=== PATIENT | female | born 1945 | race Caucasian/White ===

== ENCOUNTER 2018-11-07 05:56 | Inpatient (IN) | payer OTHER, MEDICARE ==
[2018-11-02 13:55] VITALS: BMI 32.4
[2018-11-07] MEDS ORDERED: THROMBIN (BOVINE) 5,000 UNIT VIAL TP ONE ×2 (07:06→10:48)
[2018-11-07] MEDS ORDERED: KETOROLAC TROMETHAMINE 30 MG/1 ML VIAL ONE (08:00)
[2018-11-07] MEDS ORDERED: ceFAZolin SODIUM 1 GM VIAL ONE (08:00)
[2018-11-07] MEDS ORDERED: DEXAMETHASONE SOD PHOSPHATE 4 MG/1 ML VIAL ONE (08:00)
[2018-11-07] MEDS ORDERED: ONDANSETRON 4 MG/2 ML VIAL ONE (08:00)
[2018-11-07] MEDS ORDERED: SUCCINYLCHOLINE CHLORIDE 200 MG/10 ML VIAL ONE (08:01)
[2018-11-07] MEDS ORDERED: PROPOFOL 20 ML ONE (08:01)
[2018-11-07] MEDS ORDERED: BUPIVACAINE HCL/PF 0.5% (5MG/ML) 10 ML VIAL ONE (08:05)
[2018-11-07] MEDS ORDERED: BUPIVACAINE HCL/PF (5 MG/ML) 30 ML VIAL IJ ONE (08:10)
[2018-11-07] MEDS ORDERED: MIDAZOLAM HCL 2 MG/2 ML SINGLE DOSE VIAL ONE ×2 (08:10→10:24)
[2018-11-07] MEDS ORDERED: BUPIVACAINE LIPOSOME/PF (EXPAREL) 266 MG/20 ML VIAL ONE (08:10)
--- NOTE | 2018-11-07 08:10 | HP ---
History & Physical Update - History History: No Change - Physical Physical: No Change - Assessment Assessment: No Change - Plan Plan: No Change (H&P from PCP and clearance from cardiology from 10/20/2018. She has palpable peripheral pulses b/l.)
[2018-11-07] MEDS ORDERED: ePHEDrine SULFATE 50 MG/1 ML AMPULE ONE (09:01)
[2018-11-07] MEDS ORDERED: ONDANSETRON 4 MG/2 ML VIAL IVPUSH PRN ×2 (10:12→11:00)
[2018-11-07] MEDS ORDERED: oxyCODONE HCL 5 MG TABLET PO PRN ×3 (10:13→11:00)
[2018-11-07] MEDS ORDERED: LACTATED RINGERS SOLUTION 1,000 ML IV SCH (10:15)
[2018-11-07] MEDS ORDERED: ACETAMINOPHEN 325 MG TABLET (FP) PO SCH ×2 (10:15→16:00)
[2018-11-07] MEDS ORDERED: GUM MASTIC/STORAX/MSAL/ALCOHOL 1 DRP DROPSBTL MC ONE (10:44)
[2018-11-07] MEDS ORDERED: GELATIN SPONGE,ABSORBABLE 1 GM PACKET TP ONE (10:49)
[2018-11-07] MEDS ORDERED: TRIAMCINOLONE ACET 0.1% CREAM 15 GM TUBE TP PRN (11:04)
[2018-11-07] MEDS ORDERED: ACETAMINOPHEN 1000 MG/100 ML VIAL (NON FORMULARY) IVPB ONE ×2 (11:08→11:25)
[2018-11-07] MEDS ORDERED: FUROSEMIDE 40 MG TABLET (FP) PO SCH (11:15)
--- NOTE | 2018-11-07 11:15 | OP ---
Operative Note - Note: Operative Date: 11/07/18 Pre-Operative Diagnosis: lumbar spondylolisthesis Operation: posterior lumbar decompression, instrumentation, fusion, transformainal interbody fusion of L4-L5 with neuromonitoring and allograft Surgeon: Michael Markham [place] Weighmaster: Shirin Cason Anesthesiologist/[employer] DEMONSTRATION AGENT: Geri Lagos Anesthesia: Spinal Estimated Blood Loss (mls): 20 Fluid Volume Replaced (mls): 900 Operative Report Dictated: Yes
--- NOTE | 2018-11-07 11:18 | SURG ---
Surgery Chief Mechanical Officer Note Chief Mechanical Officer: Shirin Cason PA-C Date of Service: 11/07/18 Diagnosis: lumbar spondylolisthesis Procedure: posterior lubmar decompression, instrumentation, fusion/ transforaminal interbody fusion of L4-L5 with allograft and neuromonitoring I was present for the entirety of the operative procedure. For further detail, please refer to operative report. Visit type - Case Type Case Type: Scheduled - Emergency Emergency Visit: No - New patient This patient is new to me today: Yes Date on this admission: 11/07/18 - Critical Care Critical Care patient: No
[2018-11-07] MEDS ORDERED: SODIUM CHLORIDE 0.45% 1,000 ML IV SCH (11:30)
[2018-11-07] MEDS ORDERED: diazePAM 2 MG TABLET ONE (12:15)
[2018-11-07] MEDS ORDERED: diazePAM 2 MG TABLET PO ONE (12:29)
[2018-11-07] MEDS: diazePAM 2 MG TABLET PO SCH ×2 (14:02→23:34)
[2018-11-07] MEDS: oxyCODONE HCL 5 MG TABLET PO PRN ×3 (14:14→22:27)
[2018-11-07] MEDS: INSULIN SLIDING SCALE (NOVOLOG) 1 VIAL SQ SCH ×2 (16:35→22:32)
[2018-11-07] MEDS: ACETAMINOPHEN 325 MG TABLET (FP) PO SCH ×2 (17:23→23:33)
[2018-11-07] MEDS: CEFAZOLIN 1 GM/D5W 1 GM/50 ML BAG IVPB SCH (17:33)
--- NOTE | 2018-11-07 21:41 | OP ---
DATE OF OPERATION: 11/07/2018 PREOPERATIVE DIAGNOSES: 1. Spondylolisthesis, L4-5. 2. Spinal stenosis, L4-5. POSTOPERATIVE DIAGNOSES: 1. Spondylolisthesis, L4-5. 2. Spinal stenosis, L4-5. PROCEDURE PERFORMED: 1. Transforaminal lumbar interbody fusion, L4-5. 2. Placement of instrumentation. 3. Placement of interbody cage. SURGEON: Michael Markham MD PROOFREADER: LEA Joe ESTIMATED BLOOD LOSS: 50 mL INTRAVENOUS FLUIDS: Per Anesthesia. ANESTHESIA: Spinal/TLIP block. COMPLICATIONS: None. DISPOSITION: Patient was brought to the PACU in stable condition. INDICATION FOR SURGERY: The patient is a 73-year-old female who has been suffering from pain from her back down her legs. X-rays and MRI were completed which noted that she had spinal stenosis at L4-5 secondary to a spondylolisthesis. She had gone through an exhaustive course of treatment for this which included medications, physical therapy, as well as injections. Unfortunately, her pain continued to persist despite all this. At this point, risks, benefits, and alternatives were discussed, and the patient consented to surgery. DESCRIPTION OF PROCEDURE: Patient was brought to the operating room by the anesthesia staff. After appropriate patient identification was performed, spinal anesthesia was given. TLIP block was also given. The patient was able to position herself prone onto the OR table with all areas of bony prominences well padded at this time. The C-arm was brought in. The L4 and L5 pedicles were marked off. Her back was prepped and draped in a sterile manner. At this point, timeout was completed. Incisions were made bilaterally over the L4 and L5 pedicles. Dissection was carried down to the fascia. Fascia was split open at this time. Under C-arm guidance, trocars were advanced into both the L4 and L5 pedicles. Through the trocar, wire was inserted. Tap was performed. Screws were inserted. On the right-hand side, retractor blades were set up to expose the L4-5 facet joint. The facet joint was removed. The disk was entered using a series of pituitaries, Kerrisons, and curettes. A diskectomy was completed. The endplates were decorticated at this time. Bone graft was placed in. A cage filled with bone graft was placed in. Tulip heads were placed over the screws. A daina was measured and placed in. Caps and compression were applied. On the left-hand side, a daina was measured and placed in. Caps and compression were applied. All x-ray instrumentation was removed at this time. The fascia was closed with a number 1 Vicryl suture. Subcutaneous tissue was closed with 2-0 Vicryl suture. S kin was closed with 3-0 Monocryl suture. Dermabond was applied. Steri-Strips were applied. A sterile dressing was applied. Patient was placed supine on the OR bed and brought to the PACU in stable condition. Jasiel [id number]
[2018-11-08] MEDS: CEFAZOLIN 1 GM/D5W 1 GM/50 ML BAG IVPB SCH ×2 (02:34→09:40)
[2018-11-08] MEDS: oxyCODONE HCL 5 MG TABLET PO PRN ×2 (02:35→06:19)
[2018-11-08] MEDS: ACETAMINOPHEN 325 MG TABLET (FP) PO SCH (06:18)
[2018-11-08] MEDS: INSULIN SLIDING SCALE (NOVOLOG) 1 VIAL SQ SCH (06:29)
[2018-11-08 06:41] VITALS: BP 127/66; PULSE 60; TEMP 98
--- NOTE | 2018-11-08 06:56 | DS ---
Physical Exam: SUBJECTIVE: Patient seen and examined. Sitting in chair at bedside. C/o mild incisional tenderness. Adequate pain control with medications ordered. States she has been OOB and ambulating the floors unassisted. Voiding spontaneously. Toleratiing PO diet. States the right thigh pain which was present prior too surgery is still present but seems to dissipate after she starts to ambulate. Denies n/v/f/c, numbness/weakness/tingling. OBJECTIVE: Vital Signs Temperature 98.0 F 11/08/18 06:00 Pulse Rate 60 11/08/18 06:00 Respiratory Rate 18 11/08/18 06:00 Blood Pressure 127/66 11/08/18 06:00 O2 Sat by Pulse Oximetry (%) 93 L 11/08/18 06:00 PHYSICAL EXAM GENERAL: The patient is awake, alert, and fully oriented, in no acute distress. LE: soft. NT. 2+ pulses, warm, well-perfused, no edema. NEURO: CN II - XII grossly intact. Normal speech, gait not observed. PSYCH: Normal mood, normal affect. BACK: dressing c/d/i. No palpable hematoma. No signs of infection LABS POC Glucometer 131 UNITS (80-120) 11/08/18 06:20 HOSPITAL COURSE: Date of Admission:11/07/18 Date of Discharge: 11/08/18 The patient was admitted to the Med-Surg Unit after an elective repair of their L4/5 spondylolithesis. Now, s/p posterior lumbar decompression, instrumentation , fusion, transformainal interbody fusion of L4-L5 with neuromonitoring and allograft. The day of surgery, the patient ambulated the hallways with assistance. Narcotic and non-narcotic pain management control was achieved with an oral and IV approach. POD #1, patient continued to ambulate unassisted. An xray was obtained and confirmed hardware placement at L4/5, no fractures or dislocations. Joyce-operative IV ABX were administered. DVT prophylaxis was achieved with SCDs and early ambulation. The patient ambulated with Physical Therapy and no services were recommended upon discharge. Narcotic scripts and or muscle relaxants were checked with [place] [employer] prior to escribe. The discharge instructions and an oral pain management plan were reviewed with the patient. All questions answered. Above plan discussed with Dr. Markham and agreed. Minutes to complete discharge: 35 <Richard Plata P - Last Filed: 11/08/18 07:50> Physical Exam: SUBJECTIVE: Patient seen and examined OBJECTIVE: Vital Signs Temperature 98.0 F 11/08/18 06:00 Pulse Rate 60 11/08/18 06:00 Respiratory Rate 16 11/08/18 08:42 Blood Pressure 127/66 11/08/18 06:00 O2 Sat by Pulse Oximetry (%) 97 11/08/18 08:42 PHYSICAL EXAM GENERAL: The patient is awake, alert, and fully oriented, in no acute distress. HEAD: Normal with no signs of trauma. EYES: PERRL, extraocular movements intact, sclera anicteric, conjunctiva clear. ENT: Ears normal, nares patent, oropharynx clear without exudates, moist mucous membranes. NECK: Trachea midline, full range of motion, supple. LUNGS: Breath sounds equal, clear to auscultation bilaterally, no wheezes, no crackles, no accessory muscle use. HEART: Regular rate and rhythm, S1, S2 without murmur, rub or gallop. ABDOMEN: Soft, nontender, nondistended, normoactive bowel sounds, no guarding, no rebound, no hepatosplenomegaly, no masses. EXTREMITIES: 2+ pulses, warm, well-perfused, no edema. NEUROLOGICAL: Cranial nerves II through XII grossly intact. Normal speech, gait not observed. PSYCH: Normal mood, normal affect. SKIN: Warm, dry, normal turgor, no rashes or lesions noted. LABS CBC,CMP WBC 12.0 K/mm3 (4.0-10.8) H 11/08/18 07:15 RBC 2.70 M/mm3 (3.60-5.2) L 11/08/18 07:15 Hgb 8.8 GM/dl (10.7-15.3) L 11/08/18 07:15 Hct 26.5 % (32.4-45.2) L 11/08/18 07:15 MCV 98.1 fl (80-96) H 11/08/18 07:15 MCH 32.4 pg (25.7-33.7) 11/08/18 07:15 MCHC 33.0 g/dl (32.0-36.0) 11/08/18 07:15 RDW 14.1 % (11.6-15.6) 11/08/18 07:15 Plt Count 147 K/MM3 (134-434) 11/08/18 07:15 MPV 10.5 fl (7.5-11.1) 11/08/18 07:15 Sodium 133 mmol/L (136-145) L 11/08/18 07:15 Potassium 5.1 mmol/L (3.5-5.1) 11/08/18 07:15 Chloride 105 mmol/L (98-107) 11/08/18 07:15 Carbon Dioxide 20 mmol/L (21-32) L 11/08/18 07:15 Anion Gap 8 MMOL/L (8-16) 11/08/18 07:15 BUN 47 mg/dl (7-18) H 11/08/18 07:15 Creatinine 1.9 mg/dl (0.55-1.3) H 11/08/18 07:15 Creat Clearance w eGFR 25.84 (>60) 11/08/18 07:15 POC Glucometer 131 UNITS (80-120) 11/08/18 06:20 Random Glucose 134 mg/dl (74-106) H 11/08/18 07:15 Calcium 9.0 mg/dl (8.5-10) 11/08/18 07:15 HOSPITAL COURSE: Date of Admission:11/07/18 Date of Discharge: 11/11/18 Patient seen and examined Agree with above D/C Planning <Michael Markham - Last Filed: 11/11/18 13:59> Visit type - Case Type Case Type: Scheduled - New patient This patient is new to me today: Yes Date on this admission: 11/08/18 <Richard Plata - Last Filed: 11/08/18 07:50>
[2018-11-08] MEDS ORDERED: LEVOTHYROXINE NA 75 MCG TABLET (FP) PO SCH (07:00)
[2018-11-08 08:06] LABS: HEMATOCRIT 26.5 % (32.4-45.2); HEMOGLOBIN 8.8 GM/dl (10.7-15.3); MCH 32.4 pg (25.7-33.7); MEAN CELL VOLUME 98.1 fl (80-96); MEAN PLT VOLUME 10.5 fl (7.5-11.1); PLATELET COUNT 147 K/MM3 (134-434); RDW 14.1 % (11.6-15.6)
[2018-11-08 08:09] LABS: ANION GAP 8 MMOL/L (8-16); BLOOD UREA NITROGEN 47 mg/dl (7-18); CHLORIDE 105 mmol/L (98-107); CO2 20 mmol/L (21-32); CREATININE 1.9 mg/dl (0.55-1.3); GLUCOSE,RANDOM 134 mg/dl (74-106); POTASSIUM 5.1 mmol/L (3.5-5.1); SODIUM 133 mmol/L (136-145)
[2018-11-08] MEDS ORDERED: VALSARTAN 160 MG TABLET (UD) PO SCH (10:00)
[2018-11-08] MEDS ORDERED: ATORVASTATIN CA 80 MG TABLET (FP) PO SCH (10:00)
[2018-11-08] MEDS ORDERED: POTASSIUM CHLORIDE TABS 10 MEQ TABLET.ER (FP) PO SCH (10:00)
[2018-11-08] MEDS ORDERED: ALLOPURINOL 100 MG TABLET (FP) PO SCH (10:00)
[2018-11-08] MEDS ORDERED: PANTOPRAZOLE 40 MG TABLET (FP) PO SCH (10:00)
== END 2018-11-08 11:00 | disposition home or self-care (01) | DRG 460 ==
LOC: FM/S 05:56
PROVIDERS: ADMIT Orthopaedic Surgery Orthopaedic Surgery of the Spine; ATTEND Orthopaedic Surgery Orthopaedic Surgery of the Spine
PROC: 0SB20ZZ Excision of Lumbar Vertebral Disc, Open Approach (ICD-10-PCS; 2018-11-07)
PROC: 4A10X4G Monitoring of Central Nervous Electrical Activity, Intraoperative, External Approach (ICD-10-PCS; 2018-11-07)
PROC: 0SG00AJ Fusion of Lumbar Vertebral Joint with Interbody Fusion Device, Posterior Approach, Anterior Column, Open Approach (ICD-10-PCS; principal; 2018-11-07 08:15)
DX: M48.061 Spinal stenosis, lumbar region without neurogenic claudication (principal); M43.16 Spondylolisthesis, lumbar region
CPT/HCPCS: 36415; 72100-TC-FY; 76000-TC-FY; 80048; 82962; 85027; 94760; 97116-GP; 97162-GP; J0131